=== PATIENT | female | born 1985 | race Caucasian/White ===

== ENCOUNTER → 2019-01-08 15:43 | Outpatient (CLI) | payer OTHER, SELFPAY ==
--- NOTE | 2019-01-08 15:51 | RAD_ITS ---
STUDY: X-RAY - UNILATERAL RIBS ( RIGHT ) WITH CHEST REASON FOR EXAM: Female, 33 years old. Pain TECHNIQUE - RIBS: 4 view(s) of the ribs. TECHNIQUE - CHEST: Frontal view of the chest COMPARISON: None. FINDINGS - RIBS: There are no displaced rib fractures identified. FINDINGS - CHEST: The lungs are clear. Bilateral granulomata present. There are no pleural effusions. There is no pneumothorax. The heart is normal in size. Bilateral calcified lymph nodes are present. RAD/Ribs Uni Min 3V w/PA Chest IMPRESSION: RIBS: No displaced rib fracture identified. CHEST: Clear lungs. Electronically Signed: Sudheer Dover, at 16:20 EDT Tel , Service support ,
== END ==
PROVIDERS: Family Provider Family Medicine; PCP Family Medicine; Referring Provider Family Medicine; Visit Provider Family Medicine
DX: R07.81 Pleurodynia (principal)
CPT/HCPCS: 71101

== ENCOUNTER → 2021-03-30 11:10 | Outpatient (CLI) | payer OTHER, SELFPAY ==
[2021-03-30 15:38] LABS: Absolute Lymphocyte Count 1.23 X10^3/uL (0.83-4.51); Basophil# 0.02 X10^3/uL; Basophil% 0.6 % (0-1); Eosinophil# 0.08 X10^3/uL; Eosinophils% 2.2 % (0-5); Hematocrit 41.5 % (37-47); Hemoglobin 13.3 g/dL (12.0-15.0); Lymphocyte # 1.23 X10^3/ul (0.83-4.51); Lymphocyte % 34.1 % (19-41); Mean Corpuscular Volume 93.7 fL (81-99); Mean Platelet Vol. 10.4 fl (6.2-12.0); Monocyte# 0.31 X10^3/uL; Monocyte% 8.6 % (0-10); NRBC Flagged by Analyzer 0 % (0-5); Neutrophil # 1.97 X10^3/uL (2.7-7.7); Neutrophil % 54.5 % (47-70); Platelet Count 284 K/mm3 (150-450); RBC Distribution Width SD 44.7 fl (35.1-43.9); Red Blood Count 4.43 M/mm3 (4.2-5.4); White Blood Count 3.6 K/mm3 (4.4-11.0)
[2021-03-30 15:48] LABS: ALB/GLOB Ratio 1.3 RATIO (0.9-2.4); AST(SGOT) 20 U/L (15-37); Alanine Aminotransfer ALT/SGPT 28 U/L (13-56); Albumin, Serum 4.4 g/dL (3.2-5.0); Alkaline Phosphatase 44 U/L (45-117); Anion Gap 7 (5-15); BUN 12 mg/dL (7-18); BUN/Creat Ratio 18.1 RATIO (10-20); Calcium,Total 8.7 mg/dL (8.5-10.1); Chloride 105 mmol/L (98-107); Creatinine, Serum 0.66 mg/dL (0.55-1.02); EST Glomerular Filtration Rate 107 mL/min (>60); Est Glom Filt Rate - Afr Amer 129 mL/min (>60); Globulin 3.3 g/dL (2.2-4.2); Glucose 85 mg/dL (74-106); Potassium 3.7 mmol/L (3.5-5.1); Protein, Total 7.7 g/dL (6.4-8.2); Sodium Level 136 mmol/L (136-145); Thyroid Stim Hormone (TSH) 1.33 uIU/mL (0.358-3.74)
[2021-04-05 13:27] LABS: Androstenedione 191 ng/dL (41-262)
== END ==
PROVIDERS: Family Medicine; PCP Family Medicine; Visit Provider Family Medicine
DX: L65.9 Nonscarring hair loss, unspecified (principal)
CPT/HCPCS: 36415; 80053; 82157; 82627; 84403; 84443; 85025; 82626

== ENCOUNTER 2022-01-18 14:31 | Outpatient (CLI) | payer OTHER, SELFPAY ==
[2022-01-18 17:43] LABS: Absolute Lymphocyte Count 1.17 X10^3/uL (0.83-4.51); Absolute Neutrophil Count 4.1 X10^3/uL (2.0-7.7); Basophil# 0.03 X10^3/uL; Basophil% 0.5 % (0-1); Eosinophil# 0.06 X10^3/uL; Eosinophils% 1.1 % (0-5); Hematocrit 43.1 % (37-47); Lymphocyte # 1.17 X10^3/ul (0.83-4.51); Lymphocyte % 20.7 % (19-41); Mean Corp Hgb Conc 32.5 g/dL (32-36); Mean Corpuscular Volume 92.5 fL (81-99); Mean Platelet Vol. 10.2 fl (6.2-12.0); Monocyte% 5.3 % (0-10); NRBC Flagged by Analyzer 0 % (0-5); Neutrophil # 4.09 X10^3/uL (2.7-7.7); Neutrophil % 72.4 % (47-70); Platelet Count 278 K/mm3 (150-450); RBC Distribution Width CV 12.6 % (11.6-14.6); RBC Distribution Width SD 42.9 fl (35.1-43.9); Red Blood Count 4.66 M/mm3 (4.2-5.4); White Blood Count 5.7 K/mm3 (4.4-11.0)
[2022-01-18 18:10] LABS: Vitamin B12 373 pg/mL (211-911)
[2022-01-18 18:51] LABS: ALB/GLOB Ratio 1.2 RATIO (0.9-2.4); AST(SGOT) 16 U/L (15-37); Alanine Aminotransfer ALT/SGPT 22 U/L (13-56); Albumin, Serum 4.2 g/dL (3.2-5.0); Alkaline Phosphatase 49 U/L (45-117); Anion Gap 7 (5-15); BUN 14 mg/dL (7-18); BUN/Creat Ratio 19.9 RATIO (10-20); Calcium,Total 9.3 mg/dL (8.5-10.1); Chloride 107 mmol/L (98-107); EST Glomerular Filtration Rate 99 mL/min (>60); Est Glom Filt Rate - Afr Amer 120 mL/min (>60); Ferritin 9 ng/mL (8-252); Globulin 3.6 g/dL (2.2-4.2); Glucose 105 mg/dL (74-106); Potassium 3.8 mmol/L (3.5-5.1); Protein, Total 7.8 g/dL (6.4-8.2); Sodium Level 139 mmol/L (136-145); T4 Free Direct 1.07 ng/dL (0.76-1.46); Thyroid Stim Hormone (TSH) 1.12 uIU/mL (0.358-3.74)
[2022-01-23 09:13] LABS: Thyroid Peroxidase AB < 8 IU/mL (0-34); Zinc, Plasma or Serum 64 ug/dL (44-115)
== END 2022-01-18 23:59 | disposition home or self-care (01) ==
LOC: MTLAB 14:38
PROVIDERS: PCP Family Medicine; Referring Provider Physician Assistant Medical; Visit Provider Physician Assistant Medical
DX: D64.9 Anemia, unspecified (principal); L65.9 Nonscarring hair loss, unspecified; L81.4 Other melanin hyperpigmentation; D18.01 Hemangioma of skin and subcutaneous tissue; D22.5 Melanocytic nevi of trunk; L57.8 Other skin changes due to chronic exposure to nonionizing radiation; L73.8 Other specified follicular disorders; D48.5 Neoplasm of uncertain behavior of skin; S80.861A Insect bite (nonvenomous), right lower leg, initial encounter; S80.862A Insect bite (nonvenomous), left lower leg, initial encounter; Z79.899 Other long term (current) drug therapy
CPT/HCPCS: 36415; 80053; 82607; 82728; 82746; 84439; 84443; 84480; 84630; 85025; 86376

== ENCOUNTER 2022-11-18 12:35 | Outpatient (CLI) | payer OTHER, SELFPAY ==
[2022-11-18 12:49] VITALS: BMI 23.8
[2022-11-18 13:00] VITALS: BP 114/76; PULSE 66; RESP 16; TEMP 36.5; O2SAT 98
--- NOTE | 2022-11-18 13:00 | OB.TRI.NOTE ---
HPI - General General Date of Admission: 11/18/22 Date of Service: 11/18/22 Chief Complaint: tear HPI Narrative KRUNAL HUNTER, is a 37 F who presents following uncomplicated home yesterday evening at 2135h. She was attended by Rhonda Pineda who reported a periurethral laceration. Krunal denies heavy bleeding and feels well. She is . She has voided without difficulty and continues pericare. PFSH PFSH Medical History no medical history no medical history Home Medications Vitamin 1 tab PO.IVFORM DAILY 11/18/22 [History Last Taken Unknown] Allergy/AdvReac Type Severity Reaction Status Date / Time codeine Allergy Intermediate Low blood Verified 11/18/22 13:04 pressure clarithromycin [From Biaxin] Allergy Low blood Verified 11/18/22 13:04 pressure Penicillins Allergy Low blood Verified 11/18/22 13:04 pressure Family History no significant family his no significant family history Surgical History History of tonsillectomy and adenoidectomy Surgical History no surgical history no surgical history History Elective abortions Hx Para 5 Spontaneous abortions Hx # Term Pregnancies 3 Ectopic pregnancies Hx # Pregnancies 2 Multiple births # of living children 5 Physical Exam Const alert, oriented x3 and no apparent distress General Appearance: cooperative and comfortable HEENT normocephalic and head/scalp atraumatic Narrative: Scant lochia. Mild labia majoral edema bilateraly. Laceration of right distal clitoral wade at junction of labia minora with hemostasis present Shallow first degree laceration with hemostasis. Urethra intact Vagina otherwise normal appearing Extremity no pedal edema Neuro oriented x3 Psych mental status grossly normal Assessment & Plan (1) Obstetrical laceration, first degree: COMMENT: and right labia/clitoral wade tear
[2022-11-18 13:04] VITALS: BP 114/76; PULSE 66
--- NOTE | 2022-11-18 13:12 | NURSING ---
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 Presents to the unit with a tear that potentially needs repair. Dr. Hickman at bedside and did not recommend a repair. Bleeding is WNL. Patient reports voiding with burning but no other issues.
--- NOTE | 2022-11-18 13:15 | NURSING ---
Patient educated on signs/symptoms of infection. Notified to reach out to hospital if infection occurs. Patient expresses understanding.
== END 2022-11-18 14:00 | disposition home or self-care (01) ==
LOC: WPOUT 12:43 → WP 12:44
PROVIDERS: PCP Family Medicine; Referring Provider Obstetrics & Gynecology; Visit Provider Obstetrics & Gynecology
DX: Z39.0 Encounter for care and examination of mother immediately after delivery (principal)
CPT/HCPCS: 99221; G0378

== ENCOUNTER → 2023-04-07 | Outpatient (CLI) | payer OTHER, SELFPAY ==
[2023-04-07 12:59] LABS: Ferritin 25 ng/mL (8-252); Free T3 2.4 pg/mL (2.18-3.98); Iron 62 ug/dL (50-170); Iron Binding Capacity,Total 320 ug/dL (250-450); PERCENT IRON SATURATION 19.4 % (15.0-55.0); T3 Total - Triiodothyronine 0.89 ng/mL (0.6-1.81); T4 Free Direct 1.05 ng/dL (0.76-1.46); Thyroid Stim Hormone (TSH) 1.37 uIU/mL (0.358-3.74); Vitamin B12 361 pg/mL (211-911)
== END | disposition home or self-care (01) ==
PROVIDERS: Referring Provider Obstetrics & Gynecology; Visit Provider Obstetrics & Gynecology
DX: L65.9 Nonscarring hair loss, unspecified (principal); E53.8 Deficiency of other specified B group vitamins
CPT/HCPCS: 36415; 82607; 82728; 83540; 83550; 84439; 84443; 84480; 84481

== ENCOUNTER → 2024-02-17 | Outpatient (CLI) | payer OTHER, SELFPAY ==
[2024-02-17 18:40] LABS: hCG Titer Quant., Serum 93935 mIU/mL (1-3)
== END | disposition home or self-care (01) ==
LOC: MTLAB 13:49
DX: O36.80X0 Pregnancy with inconclusive fetal viability, not applicable or unspecified (principal); Z3A.00 Weeks of gestation of pregnancy not specified
CPT/HCPCS: 36415; 84702; 86850; 86900; 86901

== ENCOUNTER 2024-04-05 03:43 | Day surgery (SDC) | payer OTHER, SELFPAY ==
[2024-04-05] VITALS (13 sets, daily range): BP systolic 92–142; BP diastolic 54–80; PULSE 69–84; RESP 16–18; TEMP 36.2–36.9; O2SAT 94–100; BMI 21.6
--- NOTE | 2024-04-05 03:54 | ED.VIS.FEGU ---
HPI HPI - Female History of Present Illness Chief Complaint: Vag Bleeding PFSH PFSH Home Medications ?Medication ?Instructions ?Recorded ?Last Taken ?Type Vitamin 1 tab PO.IVFORM DAILY 11/18/22 Unknown History Allergy/AdvReac Type Severity Reaction Status Date / Time codeine Allergy Intermediate Low blood Verified 11/18/22 13:04 pressure clarithromycin (From Biaxin) Allergy Low blood Verified 11/18/22 13:04 pressure Penicillins Allergy Low blood Verified 11/18/22 13:04 pressure Family History no significant family his Surgical History History of tonsillectomy and adenoidectomy Surgical History no surgical history Social History Smoking Status: Never smoker EXAM Physical Exam Const Vital Signs: 04/05/24 03:44 04/05/24 05:44 Temperature 98.5 F Temperature Source Oral Pulse Rate 75 84 Respiratory Rate 16 16 Blood Pressure 111/72 142/80 H Blood Pressure Mean 85 100 Pulse Ox 98 98 Oxygen Delivery Method Room Air Room Air MDM MDM MDM Narrative Medical decision making narrative: HISTORY OF PRESENT ILLNESS: I walked in and as per usual I introduced myself as Dr. Argueta and asked what the patient was being seen for. Of note when I walked into the room the patient's looked up, yelled did you read the chart. He further stated why are you asking a question like that. I told the patient's he needed to try and reassess his communication style and explained that I have to introduce myself and establish a chief complaint as part of the history portion of his loved ones patient's care. 38-year-old female presents with vaginal bleeding that started last night approximately 10 PM. No she is 15 weeks . She states I am losing the baby. Notes bleeding that is gone through 3 pads in last 6 hours. Notes passage of tissue. Denies history of prior miscarriage. No history of manipulation. No history of STDs. No history of IVF or other fertility treatments. Notes she is a G6, P7. No history of miscarriages. REVIEW OF SYSTEMS: Pertinent positives: Vaginal bleeding Pertinent negatives: Lightheadedness, chest pain, focal weakness PHYSICAL EXAM: Nursing triage notes reviewed, Vital signs reviewed Constitutional: please see mdm HENT: MMM Eyes: Pupils equal round and reactive to light, Extraocular muscles intact Neck: No stridor, no JVD, full neck ROM Lungs: Clear to auscultation, No wheezing or rales. No increased work of breathing, no conversational dyspnea, no accessory muscle use, no nasal flaring. No respiratory distress noted Heart: Regular rate and rhythm, No murmurs, No rubs and No gallops, 2+ distal pulses (radial, femoral, posterior tibial) in all extremities Abdomen: Soft, there is no tenderness, rigidity, rebound or guarding, no obvious peritoneal signs, no palpable pulsatile abdominal masses, no auscultated abdominal bruit : No CVAT, pelvic exam deferred, heart tones Extremities: No edema Neuro: No focal neurological deficits, cranial nerves II through XII intact, 5/5 strength in all extremities. Intact sensation to light touch in all extremities, 2+ reflexes bilateral patella tendons. Normal gait. No ataxia. Skin: No rash or lesions noted MEDICAL DECISION MAKING: Chief Complaint: Vaginal bleeding External records reviewed: Reviewed prior MORTGAGE LOAN INTERVIEWER record. Reviewed record from 2022 Which patient had a periurethral laceration after home factors affecting care: none Social determinants of health: Second trimester History obtained from others: none Consults: OBGYN Dr. Gentile - 400 mcg of cytotec MDM Narrative: Patient was initially hemodynamically stable, afebrile and nontoxic-appearing. Abdomen was benign. Pelvic exam deferred for ultrasound. I considered the following differential diagnosis: Anemia, miscarriage, vaginal bleeding in IVs were placed, fluids given. I ordered transvaginal ultrasound. We are to call ultrasound in as they are not staffed overnight. Ultrasound was called immediately. ALL IMAGES (IF OBTAINED) HAVE BEEN PERSONALLY REVIEWED AND INTERPRETED BY MYSELF. CBC without leukocytosis, severe anemia, no thrombocytopenia. BMP without evidence of significant electrolyte abnormalities, no anion gap, no acute kidney injury. Quant is 1777 downtrending from prior in January this concerning for demise Patient was a positive type and screen a positive, no need for RhoGAM Urinalysis consistent with hematuria this is likely contamination from vaginal bleeding Transabdominal ultrasound shows impending demise and large amount of endometrial material Given concern for miscarriage, retained proximal conception I consulted MORTGAGE LOAN INTERVIEWER. Spoke to the MORTGAGE LOAN INTERVIEWER on-call who recommended giving 400 mcg of Cytotec versus D&C. At 0646 I reevaluated the patient she noted she has not been bleeding since she has been in the emergency department. Offered medicine versus surgery. Patient refused surgery and was not sure if she wanted medicine at this time. At 0700 patient was reevaluated. Patient and decided to take 1 time dose of Cytotec as detailed by the MORTGAGE LOAN INTERVIEWER and to go home to continue miscarrying. The patient and/or family, caregivers express understanding. The patient and/or family, caregivers agrees with the plan. Per nursing the patient and family felt that I was too technology engineer upon entering the room. And was can concerned that I did not show empathy with her situation. I refute this. I literally introduced myself and asked what brings her in which is my typical method of beginning an encounter. And I was greeted by yelling and anger from the patient's significant other. I understand this is a stressful situation however that does not mean we should lose respect for one another. Shared decision making: I will have a discussion with the patient and or visitors regarding risk/benefits of further testing or admission. They will be made aware of of the risk/benefits inherent in this decision they will be given the opportunity to voice understanding. Total critical care time today provided was at least 0 minutes. This excludes separately billable procedures. Critical care time (if documented) is secondary to the patient having high probability of clinically significant/life threatening deterioration in the patient's condition which required my urgent intervention. Impression: 1. Second trimester 2. Vaginal bleeding 3. demise Dispo: Pending patient decision about medication and observation per OB recommendations This note was generated with M[employer] dictation software. It may contain incorrect words, spelling, and punctuation that were not noted in review of the chart prior to signing. Lab Data Labs: Laboratory Results - last 24 hr 04/05/24 04/05/24 04:07 05:16 WBC 6.6 RBC 4.40 Hgb 13.4 Hct 40.3 MCV 91.6 MCH 30.5 MCHC 33.3 RDW Std Deviation 43.1 RDW Coeff of Estefany 12.9 Plt Count 261 MPV 9.5 Immature Gran % (Auto) 0.300 Neut % (Auto) 57.9 Lymph % (Auto) 31.9 [place] % (Auto) 6.8 Eos % (Auto) 2.3 Baso % (Auto) 0.8 Absolute Neuts (auto) 3.8 Absolute Lymphs (auto) 2.10 Nucleated RBC % 0 Sodium 138 Potassium 3.8 Chloride 107 Carbon Dioxide 25.0 Anion Gap 6 BUN 13 Creatinine 0.47 L Estim Creat Clear Calc 150.44 Est GFR (MDRD) Af Amer 189 Est GFR (MDRD) Non-Af 156 BUN/Creatinine Ratio 27.7 H Glucose 104 Calcium 9.0 HCG, Quant 1777 H Urine Color Straw Urine Clarity Sl. Cloudy Urine pH 7.0 Ur Specific [place] 1.010 Urine Protein Negative Urine Glucose (UA) Normal Urine Ketones Negative Urine Occult Blood 250 H Urine Nitrite Negative Urine Bilirubin Negative Urine Urobilinogen Normal Ur Leukocyte Esterase Negative Urine RBC 5-10 SEEN Urine WBC 0 SEEN Ur Squamous Epith Cells 5-10 SEEN Urine Bacteria RARE Urine Mucus 0 SEEN Blood Type A POSITIVE Antibody Screen NEGATIVE Radiography Diagnostic Testing: Clinical Impression(s) from Imaging Studies Obstetrics Ultrasound 04/05/24 04:05 IMPRESSION: demise with large gestational sac protruding through the dilated endocervical canal into the vaginal vault. Confirm with real-time imaging. Large amount of placental soft tissue material remains in the endometrium. Electronically Signed: Ti Hernandez MD at 6:31 EDT , Discharge Plan Triage Chief Complaint: Vag Bleeding ED Provider: Wisam Argueta Dx/Rx/DC Orders Instructions: ED DEMISE Prescriptions: No Action Vitamin 1 tab PO.IVFORM DAILY Primary Care Provider: Jovanni Hartley Referrals: Sunitha Gentile MD [Med Staff - Active Staff] - Activity Restrictions/Additional Instructions: Thank you for trusting us with your care today! Please take Tylenol (2 pills, 650 mg) every 6 hours as needed for pain control. Please return to the emergency department if your symptoms change or worsen. Specifically develop heavy bleeding (going through more than 3 pads in an hour), if you develop chest pain, heart racing, shortness of breath, lightheadedness, excessive fatigue, pallor, fever, severe abdominal pain Please follow with MORTGAGE LOAN INTERVIEWER for further outpatient evaluation and management. Print Language: Slovak Disposition Disposition: Home, Self Care
--- NOTE | 2024-04-05 04:05 | US_ITS ---
INDICATION: abdominal pain, 2nd trimester COMPARISON: None. FINDINGS: 49 grayscale ultrasound images demonstrate large gestational sac containing 11 week fetus which has protruded through dilated endocervix into the vaginal vault. No cardiac activity consistent with demise. Large amount of placental soft tissue material remains in the endometrium. Additional cinematic series provided. Adequate amniotic fluid for gestational age. Uterine myometrium is unremarkable. Bilateral ovaries are not visualized. No significant free fluid. US/OB Limited (No Biometrics) IMPRESSION: demise with large gestational sac protruding through the dilated endocervical canal into the vaginal vault. Confirm with real-time imaging. Large amount of placental soft tissue material remains in the endometrium. Electronically Signed: Ti Hernandez MD at 6:31 EDT ,
[2024-04-05] MEDS: 0.9% Normal Saline (500mL Bag) 500 ML 999 ML IV (04:14)
[2024-04-05 04:16] LABS: Absolute Neutrophil Count 3.8 X10^3/uL (2.0-7.7); Basophil# 0.05 X10^3/uL; Basophil% 0.8 % (0-1); Eosinophil# 0.15 X10^3/uL; Eosinophils% 2.3 % (0-5); Hematocrit 40.3 % (37-47); Hemoglobin 13.4 g/dL (12.0-15.0); Lymphocyte % 31.9 % (19-41); Mean Corp Hgb Conc 33.3 g/dL (32-36); Mean Corpuscular Hgb 30.5 pg (27.0-32.0); Mean Corpuscular Volume 91.6 fL (81-99); Mean Platelet Vol. 9.5 fl (6.2-12.0); Monocyte# 0.45 X10^3/uL; Monocyte% 6.8 % (0-10); NRBC Flagged by Analyzer 0 % (0-5); Neutrophil # 3.82 X10^3/uL (2.7-7.7); Neutrophil % 57.9 % (47-70); Platelet Count 261 K/mm3 (150-450); RBC Distribution Width CV 12.9 % (11.6-14.6); RBC Distribution Width SD 43.1 fl (35.1-43.9); White Blood Count 6.6 K/mm3 (4.4-11.0)
[2024-04-05 04:38] LABS: Anion Gap 6 (5-15); BUN 13 mg/dL (7-18); BUN/Creat Ratio 27.7 RATIO (10-20); Chloride 107 mmol/L (98-107); Creatinine, Serum 0.47 mg/dL (0.55-1.02); EST Glomerular Filtration Rate 156 mL/min (>60); Est Glom Filt Rate - Afr Amer 189 mL/min (>60); Estimated Creatinine Clearance 150.44 ml/min; Glucose 104 mg/dL (74-106); Potassium 3.8 mmol/L (3.5-5.1); Sodium Level 138 mmol/L (136-145)
[2024-04-05 05:21] LABS: Mucous, Urine 0 SEEN /hpf (<or=2+); White Blood Cells 0 SEEN /hpf (0-5)
[2024-04-05 05:23] LABS: Color, Urine Straw (Yellow); Glucose, Dipstick Normal (Normal); Ketone-Dipstick Negative (Negative); Leukocyte Esterase-Dipstick Negative /ul (Negative); Nitrite-Dipstick Negative (Negative); Occult Blood-Urine 250 /ul (Negative); Protein-Dipstick Negative (Negative); Urine Bilirubin Dipstick Negative (Negative); Urine Clarity Sl. Cloudy (Clear); Urine Urobilinogen Normal (Normal)
[2024-04-05 05:24] LABS: hCG Titer Quant., Serum 1777 mIU/mL (1-3)
[2024-04-05 05:42] LABS: Bacteria RARE /hpf (None Seen); Red Blood Cells-Urine 5-10 SEEN /hpf (0-5); Squamous Epithelial Cells - UA 5-10 SEEN /hpf (5-10)
--- NOTE | 2024-04-05 07:46 | ED.RN ---
PT STATES SHE WOULD LIKE TO TALK TO ABOUT POSSIBLY BEING ADMITTED INSTEAD OF GOING HOME. DR. BEJARANO ADVISED.
--- NOTE | 2024-04-05 08:44 | NURSING ---
OB IN ROOM
--- NOTE | 2024-04-05 08:54 | NURSING ---
MED SURG OBS RANDY SHAFFER
--- NOTE | 2024-04-05 09:09 | PCM.HP.BLA ---
History and Physical Date of Admission: 04/05/24 @ 15 weeks by Dates, 11 weeks by ultrasound, presented to ER c/o vaginal bleeding and pain. Found to have demise- orginally wanted to go home and delivery but then changed her mind and wanted to deliver in the hospital. pt reports pain is significant, feels like labor. pt reports had all 5 children vaginally- youngest 17mo oldest 13yo, delivery only complication. Pt has not established care for this OBhx: 5 vaginal deliveries. PMH: denies Psx: tonsillectomy, knee sx Meds: PNV All: codein, PCN exam: gen: female in NAD Abd: soft, non tender VE: Tissue at cervical Os into vaginal canal- grasped with ring clamp- fetus intact, placenta retained. a/p: 38yo @ 11 weeks gestation- demise 1) discussed suction d&C for retained POC- offered testing on fetus- pt declines. Reviewed Risks benefits of procedure- including but not limited to bleeding, infection, retained products, perforation of uterus. pt would like to proceed. 2) OR staff notified, consent obtained. 3) Labs reviewed, ultrasound reviewed 4) Pt will be taking fetus home.
--- NOTE | 2024-04-05 09:29 | ED.RN ---
PER PT REQUEST, CHILD REMAINING WITH MOTHER - A/C NOTIFIED, PAPERWORK SENT WITH PT.
--- NOTE | 2024-04-05 09:36 | PRE.ANES_ITS ---
ASA Classification* ASA Classification ASA Classification: 2 and E Assessment & Plan Anesthesia* Anesthesia Assessment Anesthesia Assessment: Discussed sedation and/or anesthesia options, risks, benefits, and alternatives with patient/parents/legal guardian/POA. Questions invited. The patient/parents/legal guardian/POA seems to understand and agrees to proceed with anesthesia plan. Reviewed the physical assessment, medical history, allergy history and patient home medications list prior to surgery/procedure/anesthetic and documented any changes. Performed airway and anesthesia risk assessments. Anesthesia Type Anesthesia Type: MAC History Source History Obtained from:: Patient and Chart Anesthesia Focused Assessment* Temperature: 98.0 F Pulse Rate: 77 Blood Pressure: 128/75 Respiratory Rate: 16 Pulse Ox: 100 Oxygen Delivery Method: Room Air Airway Assessment Mouth opens: >3 cm Mallampati Score: III Teeth Condition: Intact Neck Range of motion (ROM): Full ROM Focused Labs Anesthesia Preop lab: CBC WBC 6.6 K/mm3 (4.4-11.0) 04/05/24 04:07 RBC 4.40 M/mm3 (4.2-5.4) 04/05/24 04:07 Hgb 13.4 g/dL (12.0-15.0) 04/05/24 04:07 Hct 40.3 % (37-47) 04/05/24 04:07 Plt Count 261 K/mm3 (150-450) 04/05/24 04:07 CHEMISTRY Potassium 3.8 mmol/L (3.5-5.1) 04/05/24 04:07 Sodium 138 mmol/L (136-145) 04/05/24 04:07 BUN 13 mg/dL (7-18) 04/05/24 04:07 Creatinine 0.47 mg/dL (0.55-1.02) L 04/05/24 04:07 Glucose 104 mg/dL (74-106) 04/05/24 04:07 TSH 1.37 uIU/mL (0.358-3.74) 04/07/23 11:14 COAG HCG, Quant 1777 mIU/mL (1-3) H 04/05/24 04:07 Pre-Assessment Diagnosis/Proposed Procedure Planned Operative Procedure(s): Suction D&C. 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 When Was Last Pacemaker Check QUESTION #4 FULL TEXT: You/Your Family Experience fever (hyperthermia) with Anesthesia Last Oral Intake Last Oral intake: Last Oral Intake NPO since Meds taken in AM with sips of water? Meds patient instructed to take am of surgery Any additional information?: Yes NPO since: 03:00 (Patient had a bagel at 300am) PONV PONV - fiberglass boat builder: PONV - fiberglass boat builder Female HX of Motion Sickness HX of N/V After Surgery Non-Smoker Duration of Surgery greater than 60 minutes Number of Risk Factors PONV Score Height & Weight Height & Weight: Anesthesia: Height & Weight Height 5 ft 6 in 04/05/24 09:13 Weight: 60.781 kg 04/05/24 09:13 Body Mass Index (BMI) 21.6 04/05/24 09:13 Respiratory Assessment Respiratory Assessment - fiberglass boat builder: Respiratory Tract Infection Hx - fiberglass boat builder Hx Respiratory Tract Infection No 04/05/24 09:13 STOP Sleep Apnea STOP Sleep Apnea - fiberglass boat builder: STOP Sleep Apnea - fiberglass boat builder Hx Hypertension No 04/05/24 09:13 Hx Sleep Apnea No 04/05/24 09:13 CPAP BIPAP Do you snore loudly (louder No 04/05/24 09:13 than talking or can be heard Do you often feel tired/ No 04/05/24 09:13 fatigued/ sleepy during daytime? Has anyone observed you stop No 04/05/24 09:13 breathing during sleep? STOP Results Negative 04/05/24 09:13 QUESTION #5 FULL TEXT : Do you snore loudly (louder than talking or can be heard through closed doors)? 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 Specify any problems Hx of Preganancy in last 3 Months Nurse Filling Out Transfusion & Questions: Date: Time: Patient unable to answer at this time (ie. confused, unrespo /Reproduction History /Reproductive History - fiberglass boat builder: /Reproductive Hx- fiberglass boat builder Hx Now Yes 04/05/24 09:13 Gestational Age (in weeks): EDC: Hx 6 04/05/24 03:51 Hx Para Hx Section SAB Yes 04/05/24 03:44 PFSH Home Medications ?Medication ?Instructions ?Recorded ?Last Taken ?Type Vitamin 1 tab PO.IVFORM DAILY 11/18/22 Unknown History Allergy/AdvReac Type Severity Reaction Status Date / Time codeine Allergy Intermediate Low blood Verified 11/18/22 13:04 pressure clarithromycin (From Biaxin) Allergy Low blood Verified 11/18/22 13:04 pressure Penicillins Allergy Low blood Verified 11/18/22 13:04 pressure Family History no significant family his Surgical History History of tonsillectomy and adenoidectomy Surgical History no surgical history no surgical history (Reconstructed left knee.) Social History Smoking Status: Never smoker Review of Systems (Anesthesia) ROS Narrative System reviewed and no additional complaints, except as documented.
--- NOTE | 2024-04-05 10:00 | POC_PTH ---
PATIENT: KRUNAL HUNTER LOC: [facility] [place] U[place][id number] AGE/SX: 38/F ROOM: RE04/05/[address]: Dr. Soco William, MDDOB: 1985 BED: DIS: 04/05/2024 SPEC #: [id number] RECD: 04/05/24 12:40 STATUS: ALONZO CLARISSA #: [id number] NATHEN: 04/05/24 10:[address]: Soco William DEPT: SURGICAL PATHOLOGY RECD BY: Jennifer Mares ENTERED: 04/05/24 13:23 SP TYPE: PROD CONC OTHR DR: Dr. Jovanni Hartley MD Tissues: Product of conception, NOS Procedures: Surgery Specimen Level IV HEADER OPERATION: D&C, suction PRE-OP DIAGNOSIS: 38 year old at 11 weeks gestation- demise TISSUE SUBMITTED: Products of conception MICROSCOPIC DIAGNOSIS Products of conception, dilation and curettage: [place], immature placental tissue and membranes (products of conception), clinically demise. CHANDAN: 04/06/2024 MICROSCOPIC DESCRIPTION Slides are reviewed. GROSS DESCRIPTION Received in fixative is one container labeled with the patient's name and designated Products of conception. The specimen consists of multiple pieces of pink soft tissue mixed with fragments of placental tissue and membranes that in aggregate measure 9.0 x 9.0 x 2.0 cm. tissue is not identified. Vehicle Maintenance Supervisor tissue is submitted in three cassettes. CHANDAN/ 04/05/2024 TC:5 CPT:59429
--- NOTE | 2024-04-05 10:23 | PCM.OPRPT ---
Report of Operation Date of Procedure: 04/05/24 Pre-Operative Diagnosis: retained products of conception - incomplete - 11 weeks demise Post-Operative Diagnosis: same Surgery/Procedure Performed:: suction D&C Description of Surgical Findings:: large amount of retained tissue. Post procedure Ultrasound performed- no further tissue noted. Fetus was delivered in the ER before taking patient to OR. Surgeon: Soco William Assistant: None Type of Anesthesia: MAC Specimen's removed: retained Products of conception Estimated Blood Loss (mL): 5cc Fluids Replaced: 600 Description of Procedure: After informed consent was obtained patient was taken to OR and placed in supine position. Anesthesia was given. patient was placed in yellow fin stirrups and prepped and draped in normal sterile fashion. bladder was drained with straight catheter with approximately 300cc of clear yellow urine expelled. Weighted speculum placed in posterior fornix of vaginal, single tooth tenaculum was used to gently grasped anterior lip of cervix. Cervix was already dilated. 10mm suction catheter was placed. suction curettage performed until no tissue was expelled and cavity was deemed empty. Ultrasound performed which confirmed this finding. The tissue was then sent to pathology for examination. No complications. At this time procedure was deemed complete and successful. Tenaculum removed, speculum removed. Good hemostasis appreciated. Vaginal sweep was negative. Instrument and lap count correct x 2. I anticipate normal postoperative course. Grafts/Implants Used: none Procedure Start Time: 10:12 Procedure Stop Time: 10:18 Complications none Admit VTE Documentation VTE Present on Admission: Yes VTE Mechan Device Prophylaxis: SCD's VTE Pharm Prophylaxis ordered?: No Reason prophylaxis not ordered:: Procedure Not Indicated
--- NOTE | 2024-04-05 10:28 | PCM.DC ---
Discharge Instructions Diet Discharge Diet: No restrictions Activity May resume sexual activity in: 1 week Dressing / Incision Call your doctor if you observe: Fever of 101 or Higher, Inability to urinate, Using more than 1 pad per hour and Uncontrolled pain Follow Up Care Please Follow Up With: Soco William MD When: 1-2 weeks post OP if you need an appointment please call [phone] Test Results: Test results from this visit will be discussed in further detail at your follow-up appointment, if applicable. Discharge Plan Admission Attending Provider: Soco William Primary Care Provider: Jovanni Hartley Instructions Patient Instructions: ED DEMISE Additional Instructions / Restrictions: Thank you for trusting us with your care today! Please take Tylenol (2 pills, 650 mg) every 6 hours as needed for pain control. Please return to the emergency department if your symptoms change or worsen. Specifically develop heavy bleeding (going through more than 3 pads in an hour), if you develop chest pain, heart racing, shortness of breath, lightheadedness, excessive fatigue, pallor, fever, severe abdominal pain Please follow with [facility] for further outpatient evaluation and management. Print Language: Sinhala Discharge Orders/Prescriptions Prescriptions: No Action Vitamin 1 tab PO.IVFORM DAILY Referrals / Follow Up: Sunitha Gentile MD [Med Staff - Active Staff] - Disposition Disposition (needs filled in before D/C Order can be placed): Home, Self Care
[2024-04-05] MEDS: Doxycycline 100 MG CAPSULE 200 MG PO (11:14)
--- NOTE | 2024-04-05 11:59 | PCM.POSTANE2 ---
Anesthesia Postop Eval I Sum Anesthesia Postop Eval I Summary Anesthesia Postop Eval I Summary: Anesthesia Postop Eval I: Assessment Summary Airway patent Spontaneous unlabored respirations Mental status nausea Vomiting Anesthesia Postop Eval I: Fluid Summary Crystalloid volume administer (ml) Colloids volume administered ( ml) Blood Product volume administered (ml) Total IV fluid infused Anesthesia Postop Eval I: Summary Notes Anesthesia Complication Anesthesia Complication Comment: Post-operative progress note Anesthesia: Postop Eval II Evaluation Mental status: Awake and Calm Pain Level: 1 nausea: No Vomiting: No Complications Anesthesia Complication: No
--- NOTE | 2024-04-05 12:02 | PCM.POST.ANE ---
Anesthesia: Postop Eval I Current Vital Signs Temperature: 97.2 F Pulse Rate: 79 Blood Pressure: 101/59 Respiratory Rate: 16 Pulse Ox: 94 Oxygen Delivery Method: Room Air Assessment Airway patent: Yes Spontaneous unlabored respirations: Yes Mental status: Awake and Calm nausea: No Vomiting: No Anesthesia Complication: No Fluid Hydration Crystalloid volume administer (ml): 600 Total IV fluid infused: 600 Progress Note Anesthesia document: Postop Eval 1 completed: Yes
--- NOTE | 2024-04-05 12:03 | POSTOPAN2_ITS ---
Anesthesia Postop Eval I Sum Postop Eval Completion status Anesthesia document: Postop Eval 1 completed: Yes Anesthesia Postop Eval I Summary Anesthesia Postop Eval I Summary: Anesthesia Postop Eval I: Assessment Summary Airway patent Yes 04/05/24 12:03 [email or web address] Spontaneous unlabored Yes 04/05/24 12:03 CRISIS [email or web address] respirations Mental status Awake,Calm 04/05/24 12:03 [email or web address] [email or web address] nausea No 04/05/24 12:03 [email or web address] [email or web address] Vomiting No 04/05/24 12:03 [email or web address] [email or web address] Anesthesia Postop Eval I: Fluid Summary Crystalloid volume administer 600 04/05/24 12:03 CRISIS [email or web address] (ml) Colloids volume administered ( ml) Blood Product volume administered (ml) Total IV fluid infused 600 04/05/24 12:03 CRISIS [email or web address] Anesthesia Postop Eval I: Summary Notes Anesthesia Complication No 04/05/24 12:03 [email or web address] [email or web address] Anesthesia Complication Comment: Post-operative progress note Anesthesia: Postop Eval II Evaluation Mental status: Awake and Calm Pain Level: 0 nausea: No Vomiting: No Complications Anesthesia Complication: No
--- NOTE | 2024-04-05 12:03 | PCM.POSTANE2 ---
Anesthesia Postop Eval I Sum Postop Eval Completion status Anesthesia document: Postop Eval 1 completed: Yes Anesthesia Postop Eval I Summary Anesthesia Postop Eval I Summary: Anesthesia Postop Eval I: Assessment Summary Airway patent Yes 04/05/24 12:03 PROCESS [email or web address] Spontaneous unlabored Yes 04/05/24 12:03 PROCESS [email or web address] respirations Mental status Awake,Calm 04/05/24 12:03 PROCESS [email or web address] nausea No 04/05/24 12:03 PROCESS [email or web address] Vomiting No 04/05/24 12:03 PROCESS [email or web address] Anesthesia Postop Eval I: Fluid Summary Crystalloid volume administer 600 04/05/24 12:03 PROCESS [email or web address] (ml) Colloids volume administered ( ml) Blood Product volume administered (ml) Total IV fluid infused 600 04/05/24 12:03 PROCESS [email or web address] Anesthesia Postop Eval I: Summary Notes Anesthesia Complication No 04/05/24 12:03 PROCESS [email or web address] Anesthesia Complication Comment: Post-operative progress note Anesthesia: Postop Eval II Evaluation Mental status: Awake and Calm Pain Level: 0 nausea: No Vomiting: No Complications Anesthesia Complication: No
== END 2024-04-05 11:35 | disposition home or self-care (01) ==
LOC: ED 08:25 → SDC 09:00 → AC 09:00
PROVIDERS: Emergency Medicine; Emergency Provider Emergency Medicine; PCP Family Medicine; Visit Provider Obstetrics & Gynecology
PROC: (CPT 58120; principal; 2024-04-05 09:45)
DX: O02.1 Missed abortion (principal); O71.82 Other specified trauma to perineum and vulva; Z3A.11 11 weeks gestation of pregnancy
CPT/HCPCS: 58120; 00940; 76815; 80048; 81001; 84702; 85025; 86850; 86900; 86901; 88305; 99284; J7030; A4216; J2405